=== PATIENT | female | born 1960 | race Caucasian/White ===

== ENCOUNTER → 2017-05-22 | Outpatient (CLI) | payer BC ==
--- NOTE | 2017-05-22 12:32 | RAD ---
Bone densitometry scan, 05/22/2017: History: Osteoporosis follow-up The lumbar spine and right hip were examined utilizing a DEXA technique. The bone mineral density in the lumbar spine as measured from the L1-L4 levels is 0.73 g/sq cm yielding a T score of -3.8. This is indicative of osteoporosis. This lumbar spine T score is unchanged since 05/21/2016. The total T score at the right hip is -3.1, also compatible with osteoporosis. On the previous study the right hip T score was -3.3. IMPRESSION: Osteoporosis, similar to that delineated on 05/21/2016.
== END | disposition home or self-care (01) ==
LOC: DXRAD 09:52
PROVIDERS: ATTEND Internal Medicine Endocrinology, Diabetes & Metabolism
DX: M81.0 Age-related osteoporosis without current pathological fracture (principal)
CPT/HCPCS: 77080

== ENCOUNTER → 2017-05-22 | Outpatient (CLI) | payer BC ==
--- NOTE | 2017-05-22 10:38 | RAD ---
CT of the chest without contrast, 05/22/2017: History: Lung nodule follow-up Noncontrast scans were obtained as requested. Comparison is made to a study from 05/29/2016. There is a tiny unchanged 2 mm nodule in the lateral aspect of the left lower lobe as seen on image 161 of series #5. A similar unchanged tiny nodule is seen laterally in the left upper lobe on image 115 of series #5. There are a few other scattered small linear opacities in the lungs compatible with scars. There appears to be minimal bilateral apical pleural-parenchymal scarring. No new or enlarging pulmonary densities are seen. There is no evidence of pleural fluid. No mediastinal adenopathy is seen. The thoracic aorta is unremarkable. A small amount of pericardial fluid is present. Mild scattered degenerative changes are present in the spine. Several small sclerotic foci in the bones are unchanged and are of doubtful significance. IMPRESSION: 1. Stable tiny pulmonary nodules as described above. Routine follow up of nodules of this size is not required in the absence of high risk factors. 2. No new chest abnormality is detected. PQRS Compliance Statement: One or more of the following individualized dose reduction techniques were utilized for this examination: 1. Automated exposure control 2. Adjustment of the mA and/or kV according to patient size 3. Use of iterative reconstruction technique
== END | disposition home or self-care (01) ==
LOC: CT 09:47
PROVIDERS: ATTEND Internal Medicine Critical Care Medicine
DX: R91.8 Other nonspecific abnormal finding of lung field (principal)
CPT/HCPCS: 71250

== ENCOUNTER → 2018-05-20 | Outpatient (CLI) | payer BC ==
[2018-05-20 13:07] LABS: CALCIUM 9.8 mg/dL (8.5-10.1); CREATININE 0.7 mg/dL (0.6-1.0); GFR 85.9; POTASSIUM 4.3 mmol/L (3.5-5.1)
--- NOTE | 2018-05-20 15:54 | RAD ---
Bone mineral density exam History: Screening, ovarian failure, history of leiomyosarcoma and thyroid disease Comparison: None Findings: Bone mineral density examination utilizing DEXA was performed. Right femur bone mineral density of 0.590 g/cm2 corresponds with a T score -3.3, Z score -2.3. Compared with baseline exam in 2006, there has been -22% decrease. The bone mineral density of the lumbar spine was 0.703 g/cm2 which corresponds with a T-score of -4.0, Z score -2.7. Comparing with baseline exam in 2006, there has been -18% decrease. By World Congress on Osteoporosis criteria, a T score of 0 to-1 SD is considered to be within normal limits. A T score of -1 to -2.5 SD is considered osteopenia. A T score less than -2.5 SD is considered osteoporosis. Impression: 1. There is osteoporosis of the lumbar spine and the femurs. Electronically signed by: Reese Orellana MD (05/20/2018 3:51 PM) [id number]
== END | disposition home or self-care (01) ==
LOC: DXRAD 11:16
PROVIDERS: ATTEND Internal Medicine Endocrinology, Diabetes & Metabolism
DX: M81.0 Age-related osteoporosis without current pathological fracture (principal)
CPT/HCPCS: 36415; 77080; 80048

== ENCOUNTER → 2019-05-18 | Outpatient (CLI) | payer BC ==
--- NOTE | 2019-05-18 14:07 | RAD ---
Bone densitometry 05/18/2019 10:00 AM Indication: Osteoporosis Comparison Study: Bone densitometry May 20, 2018 . Discussion: Bone Densitometry was performed with dual photon absorption of the lumbar spine and proximal femurs. Lumbar Spine: Bone average density is 0.747 g/cm2 for L1-L4. T-Score is -3.6. (Prior T score -4.0) Right femoral neck: Bone average density is 0.635 andg/cm2. T-Score is -2.9. (Prior T score -2.4) IMPRESSION: Osteoporosis of the lumbar spine and right femoral neck. Fracture risk is high. Post therapeutic follow-up examination recommended. Note: Definitions established by the World Health Organization: Normal: T-score is -1.0 or above. Osteopenia: T-score is between -1.0 and -2.5. Osteoporosis: T-score is -2.5 or below. Electronically signed by: Kermit Goldberg MD (05/18/2019 2:05 PM) [id number]
== END | disposition home or self-care (01) ==
LOC: DXRAD 09:47
PROVIDERS: ATTEND Internal Medicine Endocrinology, Diabetes & Metabolism
DX: M81.0 Age-related osteoporosis without current pathological fracture (principal)
CPT/HCPCS: 77080